=== PATIENT | female | born 1995 | race Caucasian/White ===

== ENCOUNTER → 2018-05-12 | Outpatient (CLI) | payer SELFPAY ==
[~2018-05-12] MED LIST: CYCL10TA29 PO; DIA5 PO; IBUP-136 PO; IBUP600T22 PO; LOR5/325 PO; NO HOME MEDS; NORG1TAB94 PO; ONDA4TAB PO; OXYC-865 PO; PER PO; SULF-198 PO
== END ==
LOC: AMB 17:57
PROVIDERS: ATTEND Nurse Practitioner
DX: Z02.9 Encounter for administrative examinations, unspecified (principal)